=== PATIENT | female | born 1995 | race Caucasian/White ===

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

== ENCOUNTER → 2017-01-02 | Outpatient (CLI) | payer BC ==
[~2017-01-02] MED LIST changes: +OMEPRAZOLE20 M2 PO; +ZANTAC 150150 MG PO
== END | disposition home or self-care (01) ==
LOC: US 02:58
DX: R10.13 Epigastric pain (principal); R11.0 Nausea

== ENCOUNTER → 2017-01-09 | Day surgery (SDC) | payer BC ==
[~2017-01-09] VITALS: Ht 157.4 cm; Wt 72.6 kg
[~2017-01-09] MED LIST changes: +GAVISCON ES TA1 EACH PO; +PROTONIX40 MG PO
--- NOTE | ~2017-01-09 | O ---
[place], [place] OPERATIVE NOTE NAME: CECILIA FITZGERALD UNIT #: [id number] ROOM: DOCTOR: JESSICA MENDESGRIFFIN BIRTHDATE: [birth year] DOS: 01/09/2017 GASTROENDOSCOPIC REPORT HISTORY OF PRESENT ILLNESS: A 21-year-old patient who has presented with chief complaint of epigastric distress, persistent dyspepsia. The patient has been on omeprazole 20 mg daily, Zantac 150 mg b.i.d. This history of dyspepsia is apparently from her childhood and on. PAST MEDICAL HISTORY: Associated GERD and asthma, which could be correlated. ALLERGIES: To no known medication. PAST SURGICAL HISTORY: T and A. SOCIAL HISTORY: Nonsmoker, nonalcohol consumer. PROCEDURE: Today's procedure part of investigation is panendoscopy plus biopsy and photographic series. PREMEDICATION: Versed and Diprivan. SCOPE: Olympus forward-viewing gastroscope Q10 video. REPORT: After putting the patient in the left lateral position and after application of lubricant to the scope, the scope was introduced; thereafter, under direct visualization, advanced through the length of esophagus without difficulty. Small hiatal hernia about 1 cm was noticed, photographed. Gastric pouch was entered, copious bile reflux in the gastric pouch was noticed. This was suctioned out, antrum was approached. Multi-erosions seen, biopsy and photographic series obtained. Duodenal bulb, second and third part within normal limits. The patient was gradually extubated and tolerated the procedure well. IMPRESSION: Bile reflux gastritis, small hiatal hernia, gastric erosions. PLAN AND DISCUSSION: I am going to switch this patient's management of this persistent dyspepsia to Protonix 40 mg q.a.m., Gaviscon Extra Strength 1 at bedtime, antireflux measures with elevation of the head of the bed 6 inches all time and clinically reassess. If some of her reflux symptoms persist, we are going to obtain a gastric emptying test and depending on that, we will decide if we have to have a small dose of prokinetics i.e., Reglan added. Thank you very much indeed. Sincerely yours, [place], [place] OPERATIVE NOTE NAME: CECILIA FITZGERALD UNIT #: [id number] ROOM: DOCTOR: JESSICA MENDES,GRIFFIN BIRTHDATE: [birth year] GRIFFIN LOPEZ MD CM:OPRECORD:OPERATIVE NOTE [id number] GRIFFIN LOPEZ MD 01/09/17 1159 interface
[2017-01-09 07:43] VITALS: BP 133/86
[2017-01-09 08:15] VITALS: BP 117/71
[2017-01-09 08:30] VITALS: BP 103/62
[2017-01-09 08:45] VITALS: BP 124/82
== END | disposition home or self-care (01) ==
LOC: SDC 01-04 12:30
DX: K29.50 Unspecified chronic gastritis without bleeding (principal); K44.9 Diaphragmatic hernia without obstruction or gangrene; K21.9 Gastro-esophageal reflux disease without esophagitis; J45.909 Unspecified asthma, uncomplicated

== ENCOUNTER → 2017-04-13 | Outpatient (CLI) | payer OTHER ==
[2017-04-13 11:30] LABS: FREE T4 0.89 ng/dl (0.76-1.46)
[2017-04-13 11:34] LABS: THYROID STIM HORMONE (HS) 1.85 uIU/ml (0.358-4.75)
== END | disposition home or self-care (01) ==
LOC: LAB 10:04
PROVIDERS: Family Medicine
DX: E66.3 Overweight (principal); N91.2 Amenorrhea, unspecified

== ENCOUNTER → 2018-05-08 | Outpatient (CLI) | payer OTHER | END | disposition home or self-care (01) | LOC: RESCLI 08:35 | DX: H92.02 Otalgia, left ear (principal); F32.9 Major depressive disorder, single episode, unspecified; F41.9 Anxiety disorder, unspecified; Z90.49 Acquired absence of other specified parts of digestive tract ==

== ENCOUNTER → 2020-08-12 | Outpatient (CLI) | payer OTHER | END | disposition home or self-care (01) | LOC: COVID19 09:32 | PROVIDERS: ATTEND Nurse Practitioner Family | DX: U07.1 COVID-19 (principal) ==